=== PATIENT | male | born 1960 ===

== ENCOUNTER 2022-10-29 11:21 | Emergency (ER) | payer SELFPAY ==
[~2022-10-29] VITALS: Ht 182.9 cm; Wt 85.9 kg
[2022-10-29 11:23] VITALS: BP 145/78
== END 2022-10-29 12:43 | disposition left against medical advice (07) ==
LOC: M ED 11:21
DX: Z53.21 Procedure and treatment not carried out due to patient leaving prior to being seen by health care provider (principal)